=== PATIENT | male | born 1955 | race Caucasian/White ===

== ENCOUNTER 2018-05-19 19:25 | Inpatient (IN) | payer BC, MEDICARE, OTHER ==
[~2018-05-19] VITALS: Ht 180.3 cm; Wt 88.0 kg
[~2018-05-19 19:25] MED LIST: AMLO10TA2 PO; ASPI-496 PO; ASPI-621 PO; ATOR20TA9 PO; ATOR40TA PO; CARI350T PO; CARV-39 PO; CHLO25TA PO; CLON0.2T PO; CLOP75TA52 PO; DOXA4TAB3 PO; FURO20TA3 PO; INSU100V8 SQ; IRBE300T16 PO; ISOS30TA8 PO; ISOS60TA36 PO; LISI-167 PO; LISI-170 PO; MINO10TA PO; NITR4.1S2 TL; OMEP-110 PO; OXYC20TA2 PO; OXYC30TA74 PO; POTA10TA12 PO; PRAS10TA4 PO; PROM50TA4 PO; SPIR25TA5 PO
[2018-05-19 20:22] LABS: CHLORIDE 102 mmol/L (98-107)
[2018-05-19 20:28] LABS: ALANINE AMINOTRANSFERASE 39 U/L (12-78); ALBUMIN 3.7 g/dL (3.4-5.0); ALKALINE PHOSPHATASE 75 U/L (45-117); ANION GAP 10 mmol/L (5-15); BILIRUBIN,TOTAL 0.8 mg/dL (0.2-1.0); CALCIUM 8.8 mg/dL (8.5-10.1); CREATININE 1.62 mg/dL (0.7-1.3); TOTAL PROTEIN 7.5 g/dL (6.4-8.2)
[2018-05-19] MEDS ORDERED: LISI-167 PO (21:14)
[2018-05-19 21:20] LABS: BASOPHILS # (AUTO) 0.03 x10^3/uL (0-0.1); BASOPHILS % (AUTO) 0 % (0-1); EOSINOPHILS # (AUTO) 0.21 x10^3/uL (0-0.4); EOSINOPHILS % (AUTO) 3 % (1-7); LYMPHOCYTES # (AUTO) 1.32 x10^3/uL (1-3.4); LYMPHOCYTES % (AUTO) 19 % (22-44); MD NO; MEAN CORPUSCULAR HEMOGLOBIN 29.1 pg (27.5-34.5); MEAN CORPUSCULAR HGB CONC 34.3 g/dL (33.2-36.2); MEAN CORPUSCULAR VOLUME 84.9 fL (81-97); MEAN PLATELET VOLUME 11.3 fL (7.4-10.4); MONOCYTES # (AUTO) 0.45 x10^3/uL (0.2-0.8); MONOCYTES % (AUTO) 7 % (2-9); NEUTROPHILS # (AUTO) 4.98 x10^3/uL (1.8-6.8); NEUTROPHILS % (AUTO) 71 % (42-75); PLATELET COUNT 158 x10^3/uL (130-400); RED BLOOD COUNT 4.49 x10^6/uL (4.38-5.82)
[2018-05-19] MEDS ORDERED: DEXTROSE 4 GM TAB.CHEW PO PRN (23:30)
[2018-05-19] MEDS ORDERED: ACETAMINOPHEN 325 MG TABLET PO PRN (23:30)
[2018-05-19] MEDS ORDERED: morphine SULFATE 10 MG/ML, 1ML IVPush PRN (23:30)
[2018-05-19] MEDS ORDERED: hydrALAzine 20 MG/ML, 1ML IVPush PRN (23:30)
[2018-05-19] MEDS ORDERED: LABETALOL 5MG/ML, 20ML IVPush PRN (23:30)
[2018-05-19] MEDS ORDERED: DEXTROSE 50%, 50ML SYRINGE IVPush PRN (23:30)
[2018-05-19] MEDS ORDERED: GLUCAGON 1 MG IM PRN (23:30)
[2018-05-19] MEDS ORDERED: NITROGLYCERIN 0.4 MG BOTTLE (25 TABS) SL PRN (23:30)
[2018-05-19] MEDS ORDERED: HEPARIN 5,000 UNITS/ML, 1ML IV PRN (23:45)
[2018-05-19] MEDS ORDERED: HEPARIN 25,000 UNITS/500ML PMX 500 ML IV PRN (23:45)
[2018-05-19] MEDS ORDERED: HEPARIN 5,000 UNITS/ML, 1ML IV ONE (23:45)
[2018-05-20] VITALS (7 sets, daily range): BP systolic 116–180; BP diastolic 68–90
[2018-05-20] MEDS: OXYcodone IR 5MG TABLET PO PRN ×5 (00:51→21:17)
[2018-05-20] MEDS: ISOSORBIDE MONONITRATE ER 60 MG TABLET PO SCH (00:51)
[2018-05-20] MEDS: NS + 20MEQ KCL 1,000 ML IV SCH ×3 (02:30→19:34)
[2018-05-20 04:04] LABS: TROPONIN I 0.028 ng/mL (0.000-0.045)
[2018-05-20 04:36] LABS: BASOPHILS # (AUTO) 0.04 x10^3/uL (0-0.1); BASOPHILS % (AUTO) 1 % (0-1); EOSINOPHILS # (AUTO) 0.23 x10^3/uL (0-0.4); EOSINOPHILS % (AUTO) 4 % (1-7); LYMPHOCYTES # (AUTO) 1.47 x10^3/uL (1-3.4); LYMPHOCYTES % (AUTO) 23 % (22-44); MD NO; MEAN CORPUSCULAR HEMOGLOBIN 29.1 pg (27.5-34.5); MEAN CORPUSCULAR VOLUME 85.6 fL (81-97); MEAN PLATELET VOLUME 12.2 fL (7.4-10.4); MONOCYTES # (AUTO) 0.33 x10^3/uL (0.2-0.8); MONOCYTES % (AUTO) 5 % (2-9); NEUTROPHILS # (AUTO) 4.47 x10^3/uL (1.8-6.8); NEUTROPHILS % (AUTO) 68 % (42-75); PLATELET COUNT 152 x10^3/uL (130-400); RED BLOOD COUNT 4.48 x10^6/uL (4.38-5.82); RED CELL DISTRIBUTION WIDTH 13.8 % (9.4-14.8)
[2018-05-20 08:40] LABS: TROPONIN I 0.024 ng/mL (0.000-0.045)
[2018-05-20 08:40] LABS: ANION GAP 7 mmol/L (5-15); CALCIUM 8.5 mg/dL (8.5-10.1); CHLORIDE 105 mmol/L (98-107); CREATININE 1.21 mg/dL (0.7-1.3)
[2018-05-20] MEDS: INSULIN LISPRO 100 UNITS/ML, PEN SQ-INSULIN SCH ×4 (08:52→21:15)
[2018-05-20] MEDS: CARVEDILOL 25 MG TABLET PO SCH ×2 (08:52→21:04)
[2018-05-20] MEDS: ASPIRIN 81 MG TABLET CHEW PO SCH (08:52)
[2018-05-20] MEDS: OMEPRAZOLE 20 MG CAPSULE.DR PO SCH (08:53)
[2018-05-20] MEDS: DOXAZOSIN 2MG TABLET PO SCH ×2 (08:53→21:04)
[2018-05-20] MEDS: DOCUSATE 100 MG CAPSULE PO SCH ×2 (08:53→21:05)
[2018-05-20] MEDS: SODIUM CHLORIDE FLUSH 10ML SYR IVF SCH ×2 (08:54→21:02)
[2018-05-20 09:24] LABS: CHOLESTEROL, TOTAL 98 mg/dL (140-239); TRIGLYCERIDES 156 mg/dL (50-200); VLDL CHOLESTEROL 31 mg/dL (0-25)
[2018-05-20 09:26] LABS: CHOL/HDL RATIO 3.4; HDL CHOL % 30 % (26-37); HDL CHOLESTEROL (DIRECT) 29 mg/dL (40-60); LDL CHOLESTEROL,CALCULATED 38 mg/dL (54-169); LDL/HDL RATIO 1.3 (0.5-3.0)
[2018-05-20] MEDS: ONDANSETRON ODT 4 MG PO PRN ×2 (16:08→21:19)
[2018-05-20] MEDS: HEPARIN 5,000 UNITS/ML, 1ML SQ SCH ×2 (16:08→23:52)
[2018-05-20] MEDS: ATORVASTATIN 40 MG TABLET PO SCH (21:04)
[2018-05-21] MEDS: ISOSORBIDE MONONITRATE ER 60 MG TABLET PO SCH
[2018-05-21 02:05] VITALS: BP 134/71
[2018-05-21] MEDS: ONDANSETRON ODT 4 MG PO PRN ×4 (02:39→18:47)
[2018-05-21] MEDS: OXYcodone IR 5MG TABLET PO PRN ×4 (02:39→18:48)
[2018-05-21] MEDS: NS + 20MEQ KCL 1,000 ML IV SCH (03:37)
[2018-05-21 05:46] LABS: ANION GAP 5 mmol/L (5-15); CALCIUM 7.8 mg/dL (8.5-10.1); CHLORIDE 109 mmol/L (98-107); CREATININE 0.94 mg/dL (0.7-1.3)
[2018-05-21] MEDS: HEPARIN 5,000 UNITS/ML, 1ML SQ SCH ×2 (06:41→15:00)
[2018-05-21 07:01] VITALS: BP 117/67
[2018-05-21] MEDS ORDERED: REGADENOSON 0.4 MG/5 ML SYRINGE ONE (08:10)
[2018-05-21] MEDS: INSULIN LISPRO 100 UNITS/ML, PEN SQ-INSULIN SCH ×4 (08:40→21:15)
[2018-05-21] MEDS: DOCUSATE 100 MG CAPSULE PO SCH ×2 (08:42→21:02)
[2018-05-21] MEDS: OMEPRAZOLE 20 MG CAPSULE.DR PO SCH (08:42)
[2018-05-21] MEDS: DOXAZOSIN 2MG TABLET PO SCH ×2 (08:42→21:05)
[2018-05-21] MEDS: CARVEDILOL 25 MG TABLET PO SCH ×2 (08:43→21:05)
[2018-05-21] MEDS: ASPIRIN 81 MG TABLET CHEW PO SCH (08:43)
[2018-05-21] MEDS: CLOPIDOGREL 75 MG TABLET PO SCH (09:00)
[2018-05-21] MEDS: SODIUM CHLORIDE FLUSH 10ML SYR IVF SCH ×2 (09:00→21:16)
[2018-05-21] MEDS ORDERED: SODIUM CHLORIDE 0.9% 1,000 ML IV ONE (09:35)
[2018-05-21] MEDS ORDERED: FENTANYL PF 100 MCG/2ML ONE (12:26)
[2018-05-21] MEDS ORDERED: VERAPAMIL 2.5 MG/ML, 2ML ONE (12:26)
[2018-05-21] MEDS ORDERED: BIVALIRUDIN 250 MG ONE (12:26)
[2018-05-21] MEDS ORDERED: MIDAZOLAM 1 MG/ML, 5ML ONE (12:26)
[2018-05-21] MEDS ORDERED: HEPARIN 1,000 UNITS/ML, 10ML ONE (12:27)
[2018-05-21] MEDS ORDERED: LIDOCAINE-MPF 2%, 2ML ONE (12:27)
[2018-05-21 12:50] VITALS: BP 134/67
[2018-05-21] MEDS ORDERED: CLOPIDOGREL 300 MG TABLET ONE (14:31)
[2018-05-21] MEDS ORDERED: BIVALIRUDIN 250 MG in DEXTROSE 5% 50 ML IV SCH (14:37)
[2018-05-21] MEDS ORDERED: SODIUM CHLORIDE 0.9% 1,000 ML IV SCH (14:37)
[2018-05-21 20:54] VITALS: BP 187/95
[2018-05-21] MEDS: ATORVASTATIN 40 MG TABLET PO SCH (21:02)
[2018-05-21] MEDS: RANOLAZINE 500 MG TAB.ER.12H PO SCH (21:02)
[2018-05-21 21:15] VITALS: BP 187/95
[2018-05-22] MEDS: HEPARIN 5,000 UNITS/ML, 1ML SQ SCH ×2 (00:03→06:38)
[2018-05-22] MEDS: OXYcodone IR 5MG TABLET PO PRN ×3 (00:07→09:23)
[2018-05-22] MEDS: ISOSORBIDE MONONITRATE ER 60 MG TABLET PO SCH (00:07)
[2018-05-22] MEDS: ONDANSETRON ODT 4 MG PO PRN ×3 (00:07→07:54)
[2018-05-22 00:10] VITALS: BP 159/83
[2018-05-22 05:35] LABS: ANION GAP 7 mmol/L (5-15); CALCIUM 8.1 mg/dL (8.5-10.1); CHLORIDE 106 mmol/L (98-107); CREATININE 1.01 mg/dL (0.7-1.3)
[2018-05-22 05:37] LABS: BASOPHILS # (AUTO) 0.04 x10^3/uL (0-0.1); BASOPHILS % (AUTO) 1 % (0-1); EOSINOPHILS # (AUTO) 0.19 x10^3/uL (0-0.4); EOSINOPHILS % (AUTO) 3 % (1-7); LYMPHOCYTES # (AUTO) 0.86 x10^3/uL (1-3.4); LYMPHOCYTES % (AUTO) 13 % (22-44); MD NO; MEAN CORPUSCULAR HEMOGLOBIN 29.6 pg (27.5-34.5); MEAN CORPUSCULAR HGB CONC 34.5 g/dL (33.2-36.2); MEAN CORPUSCULAR VOLUME 85.7 fL (81-97); MEAN PLATELET VOLUME 11.5 fL (7.4-10.4); MONOCYTES # (AUTO) 0.41 x10^3/uL (0.2-0.8); MONOCYTES % (AUTO) 6 % (2-9); NEUTROPHILS # (AUTO) 5.04 x10^3/uL (1.8-6.8); NEUTROPHILS % (AUTO) 77 % (42-75); PLATELET COUNT 138 x10^3/uL (130-400); RED BLOOD COUNT 4.04 x10^6/uL (4.38-5.82); RED CELL DISTRIBUTION WIDTH 13.4 % (9.4-14.8)
[2018-05-22 07:33] VITALS: BP 129/78
[2018-05-22] MEDS: INSULIN LISPRO 100 UNITS/ML, PEN SQ-INSULIN SCH ×2 (07:52→11:41)
[2018-05-22] MEDS ORDERED: CLOPIDOGREL 75 MG TABLET PO SCH (09:00)
[2018-05-22] MEDS: SODIUM CHLORIDE FLUSH 10ML SYR IVF SCH (09:00)
[2018-05-22] MEDS: DOCUSATE 100 MG CAPSULE PO SCH (09:00)
[2018-05-22] MEDS: CLOPIDOGREL 75 MG TABLET PO SCH (09:22)
[2018-05-22] MEDS: RANOLAZINE 500 MG TAB.ER.12H PO SCH (09:23)
[2018-05-22] MEDS: OMEPRAZOLE 20 MG CAPSULE.DR PO SCH (09:23)
[2018-05-22] MEDS: ASPIRIN 81 MG TABLET CHEW PO SCH (09:23)
[2018-05-22] MEDS: DOXAZOSIN 2MG TABLET PO SCH (09:24)
[2018-05-22 10:18] VITALS: BP 158/66
[2018-05-22] MEDS: CARVEDILOL 25 MG TABLET PO SCH (10:18)
[2018-05-22] MEDS ORDERED: RANO500T2 PO (11:34)
[2018-05-22] MEDS ORDERED: INSU100V8 SQ (11:47)
[2018-05-22] MEDS ORDERED: CLOP75TA52 PO (12:18)
[2018-05-22] MEDS ORDERED: CLOP75TA PO (12:25)
== END 2018-05-22 13:35 | disposition home or self-care (01) | DRG 246 ==
LOC: ED 21:48 → EDIP 22:33 → 5SO 23:29
PROVIDERS: ADMIT Hospitalist; ATTEND Hospitalist
PROC: 4A023N7 Measurement of Cardiac Sampling and Pressure, Left Heart, Percutaneous Approach (ICD-10-PCS; principal; 2018-05-21)
PROC: 027034Z Dilation of Coronary Artery, One Artery with Drug-eluting Intraluminal Device, Percutaneous Approach (ICD-10-PCS; 2018-05-21)
PROC: 02703ZZ Dilation of Coronary Artery, One Artery, Percutaneous Approach (ICD-10-PCS; 2018-05-21)
PROC: B2111ZZ Fluoroscopy of Multiple Coronary Arteries using Low Osmolar Contrast (ICD-10-PCS; 2018-05-21)
PROC: B2151ZZ Fluoroscopy of Left Heart using Low Osmolar Contrast (ICD-10-PCS; 2018-05-21)
PROC: 03HY32Z Insertion of Monitoring Device into Upper Artery, Percutaneous Approach (ICD-10-PCS; 2018-05-21)
DX: I25.110 Atherosclerotic heart disease of native coronary artery with unstable angina pectoris (principal); N17.0 Acute kidney failure with tubular necrosis; I24.9 Acute ischemic heart disease, unspecified; F11.20 Opioid dependence, uncomplicated; K21.9 Gastro-esophageal reflux disease without esophagitis; I11.9 Hypertensive heart disease without heart failure; G47.33 Obstructive sleep apnea (adult) (pediatric); G89.29 Other chronic pain; K59.03 Drug induced constipation; M54.9 Dorsalgia, unspecified; R79.1 Abnormal coagulation profile; E87.6 Hypokalemia; E11.65 Type 2 diabetes mellitus with hyperglycemia; E78.5 Hyperlipidemia, unspecified; Z83.3 Family history of diabetes mellitus; Z82.49 Family history of ischemic heart disease and other diseases of the circulatory system; Z80.9 Family history of malignant neoplasm, unspecified; Z90.49 Acquired absence of other specified parts of digestive tract; Z90.89 Acquired absence of other organs; Z87.891 Personal history of nicotine dependence; Z95.5 Presence of coronary angioplasty implant and graft; Z79.4 Long term (current) use of insulin; Z79.899 Other long term (current) drug therapy; Z79.82 Long term (current) use of aspirin; Z88.8 Allergy status to other drugs, medicaments and biological substances
CPT/HCPCS: 36415; 71045; 78452; 78582; 80048; 80053; 80061; 82040; 82962; 83735; 83880; 84484; 85025; 85379; 85520; 93005; 93306; 93458; 99156; 99157; 99285; C1769; C1894; C9600; J0583; J1644; J2250; J2785; J3010; J3480; J3490; Q0162; A9502; A9540; A9558; C1725; C1874; C1887; C9898; J0360; J7030; Q9967